=== PATIENT | female | born 1985 | race Caucasian/White ===

== ENCOUNTER → 2017-07-14 | Outpatient (CLI) | payer SELFPAY ==
--- NOTE | 2017-07-14 11:34 | RADIOLOGY REPORT (SQ) ---
EXAM DESCRIPTION: U/S [id number] TRNABD 1GES W/ODOP COMPLETED DATE/TIME: 07/14/2017 10:17 am REASON FOR STUDY: Z34.81 ENCOUNTER FOR SUPRVSN OF NORMAL , FIRST TRIMESTER Z34.81 ENCOUNTE R FOR SUPRVSN OF NORMAL , FIRST TRIM COMPARISON: None. TECHNIQUE: Transabdominal static and realtime grayscale images acquired of the pelvis. Additional se lected spectral and color Doppler images recorded. All images stored on PACs. bHCG: Not applicable. LIMITATIONS: None. FINDINGS: FETUS: Living intrauterine . EGA: 9 week 2 day. BRYON: 02/14/2018. FHR: 160 beats per minute. SUBCHORIONIC BLEED: No. SIZE OF BLEED: Not applicable. UTERUS: No masses. No anomalies. CERVICAL LENGTH: 2.7 cm. Closed. RIGHT ADNEXA: Normal ovary with normal vascular flow. No adnexal free fluid. No adnexal masses. LEFT ADNEXA: Ovary not identified. No adnexal free fluid. No adnexal masses. FREE FLUID: None. OTHER: No other significant finding. IMPRESSION: LIVING INTRAUTERINE . EGA 9 WEEK 2 DAY. Trimester of : First - 0 to 13 weeks. TECHNICAL DOCUMENTATION: JOB ID: [id number] [email or web address]- All Rights Reserved
== END ==
LOC: RAD 09:40
PROVIDERS: ATTEND Nurse Practitioner Women's Health
DX: Z34.81 Encounter for supervision of other normal pregnancy, first trimester (principal)
CPT/HCPCS: 76801

== ENCOUNTER 2018-02-21 21:22 | Inpatient (IN) | payer MEDICAID ==
[2018-02-21] MEDS ORDERED: RINGERS SOLUTION,LACTATED 300 ML IV ONE (21:39)
[2018-02-21] MEDS ORDERED: DINOPROSTONE 10 MG VAGINAL INSERT.SR PV PRN (21:39)
[2018-02-21] MEDS ORDERED: MAG HYDROX/AL HYDROX/SIMETH SUSP 30 ML UDCUP PO PRN (21:40)
[2018-02-21] MEDS ORDERED: ACETAMINOPHEN 325 MG TABLET PO PRN (21:40)
[2018-02-21 21:49] LABS: APPEARANCE,URINE SLIGHTLY-CLOUDY; BILIRUBIN,URINE NEGATIVE (NEGATIVE); COLOR,URINE STRAW; GLUCOSE, URINE NEGATIVE (NEGATIVE); KETONES,URINE NEGATIVE (NEGATIVE); LEUKOCYTE ESTERASE,URINE TRACE (NEGATIVE); NITRITE,URINE NEGATIVE (NEGATIVE); PROTEIN,URINE NEGATIVE (NEGATIVE); URINE SPECIFIC GRAVITY 1.002; UROBILINOGEN,URINE NEGATIVE mg/dL (<2.0)
[2018-02-21] MEDS: ZOLPIDEM TARTRATE 5 MG TABLET PO SCH (22:00)
[2018-02-21 22:05] LABS: URINE AMPHETAMINES SCREEN NEGATIVE; URINE BARBITURATES SCREEN NEGATIVE; URINE BENZODIAZEPINES SCREEN NEGATIVE; URINE COCAINE SCREEN NEGATIVE; URINE MARIJUANA (THC) SCREEN NEGATIVE; URINE METHADONE SCREEN NEGATIVE; URINE PHENCYCLIDINE SCREEN NEGATIVE
[2018-02-21 22:07] LABS: ABSOLUTE EOSINOPHILS # (AUTO) 0.1 10^3/uL (0.0-0.6); ABSOLUTE LYMPHOCYTES (AUTO) 3.1 10^3/uL (0.5-4.7); ABSOLUTE MONOCYTES (AUTO) 0.8 10^3/uL (0.1-1.4); ABSOLUTE NEUT (AUTO) 7.4 10^3/uL (1.7-8.2); BASOPHILS % (AUTO) 0.3 % (0-2); EOSINOPHILS % (AUTO) 0.6 % (0-6); HEMATOCRIT 33.3 % (36.0-47.0); HEMOGLOBIN 11.2 g/dL (12.0-15.5); LYMPHOCYTES % (AUTO) 27.3 % (13-45); MEAN CORPUSCULAR HEMOGLOBIN 24.4 pg (27.0-33.4); MEAN CORPUSCULAR HGB CONC 33.6 g/dL (32.0-36.0); MEAN CORPUSCULAR VOLUME 72 fl (80-97); MONOCYTES % (AUTO) 7.1 % (3-13); PLATELET COUNT 271 10^3/uL (150-450); SEGMENTED NEUTROPHILS % (AUTO) 64.7 % (42-78); TOTAL CELLS COUNTED % (AUTO) 100 %; WHITE BLOOD COUNT 11.4 10^3/uL (4.0-10.5)
[2018-02-21] MEDS ORDERED: DINOPROSTONE 10 MG VAGINAL INSERT.SR ONE (22:30)
[2018-02-21] MEDS: RINGERS SOLUTION,LACTATED 1,000 ML IV PRN (22:31)
--- NOTE | 2018-02-22 00:26 | Admission Physical ---
Datetime Report Generated by CPN: 02/22/2018 00:26 CURRENT ADMISSION Chief Complaint: Scheduled Induction of Labor Indication for Induction: Post Dates Admit Impression : Term, Intrauterine Admit Plan: Admit to Unit; Initiate Labor Induction Protocol ALLERGIES Medication Allergies: No Medication Allergies: No Known Allergies (02/21/2018) Latex: No Latex Allergies Food Allergies: N/A Environmental Allergies: N/A OBSTETRICAL HISTORY EDC: 02/14/2018 00:00 : 2 Para: 0 Term: 0 : 0 SAB: 0 IAB: 1 Ectopic: 0 Livin Cesareans: 0 VBACs: 0 Multiple Births: 0 Gestational Diabetes: No Rh Sensitization: No Incompetent Cervix: No OMAR: No Infertility: No ART Treatment: No Uterine Anomaly: No IUGR: No Hx Previous C/S: No Macrosomia: No Hx Loss/Stillborn: No PIH: No Hx : No Placenta Previa/Abruption: No Depression/PP Depression: No PTL/PROM: No Post Hemorrhage: No Current Procedures: Ultrasound; NST Obstetrical History Comments: G1-2005 EAB G2-Current SEE RECORDS Alcohol: No Marijuana : No Cocaine: No Other Illicit Drugs: No Cigarettes: Former Smoker. 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 Heart Disease: No Hosp/Surgery: No Autoimmune Disorder: No Anesthetic Complications: No Kidney Disease: No Abnormal Pap Smear: Yes Neuro/Epilepsy: No Psychiatric Disorders: No Other Medical Diseases: No Hepatitis/Liver Disease: No Significant Family History: No Varicosities/Phlebitis: No Trauma/Violence : No Thyroid Dysfunction: No Medical History Comments: Anemia, soft teeth; ASCUS pap with +HPV INFECTIOUS HISTORY Gonorrhea: No Genital Herpes: No Chlamydia: No Tuberculosis: No Syphilis: No Hepatitis: No HIV/AIDS Exposure: No Rash or Viral Illness: No HPV: Yes Infectious History Comments: ASCUS pap with +HPV PHYSICAL EXAM General: Normal HEENT: Normal Neurologic: Normal Thyroid: Normal Heart: Normal Lungs: Normal Breast: Deferred Back: Normal Abdomen: Normal Genitourinary Exam: Normal Extremities: Normal DTRs: Normal Pelvic Type: Adequate Vital Signs: Reviewed VAGINAL EXAM Dilatation: 1 Effacement: 0 Station: -3 MEMBRANES Pooling: Negative Membranes: Intact FETUS A EGA: 41.1 Monitoring: External US FHR- Baseline: 130 Variability: Moderate 6-25bpm Accelerations: 15X15 Decelerations: None FHR Category: Category I Presentation: Vertex Admit Comment: EFW 9.5 lbs PLANS FOR LABOR AND DELIVERY Labor and Delivery: None Pain Management: Epidural Feeding Preference: Formula Benefit of Breast Feed Discussed: Yes Circumcision: N/A INFORMED CONSENT Signature: with User ID: [email or web address]
[2018-02-22] MEDS ORDERED: OXYTOCIN/NORMAL SALINE 20 UNIT/1,000 ML RTUINJ ONE ×2 (12:49→22:48)
--- NOTE | 2018-02-22 16:22 | L&D Progress Notes ---
PROGRESS NOTES Datetime Report Generated by CPN: 02/22/2018 16:21 PROGRESS NOTE Impression: Normal Progression of Labor Procedures: Sterile Vag Exam Plan: Continue Present Management; Induction Informed Consent Obtained: Vaginal Delivery; Induction of Labor; Risks, Benefits and Alternatives Discussed Vital Signs : Reviewed Comment: Pt here for IOL. Cooks catheter placed after cervidil removed today. Plan for pitocin and cooks catheter. Anticipate . reassuring FWB VAGINAL EXAM Dilatation: 1 Effacement: 0 Station: -3 MEMBRANES Pooling: Negative Membranes: Intact FETUS A FHR - Baseline: 155 Monitoring: External US : 41.0 Presentation: Vertex SIGNATURE SIGNATURE: [id number];[id number] SIGNATURE: [id number] Signature: with User ID: [email or web address]
[2018-02-22] MEDS ORDERED: LIDOCAINE 1% INJ-PF (10 MG/ML) 30 ML SDV ONE (22:48)
[2018-02-22] MEDS ORDERED: MISOPROSTOL 0.2 MG TABLET ONE (22:48)
[2018-02-22] MEDS ORDERED: BUPIVACAINE HCL 0.25 % INJ/PF (2.5 MG/1 ML) 30 ML VIAL ONE (22:49)
[2018-02-22] MEDS ORDERED: FENTANYL/BUPIVACAINE/NS/PF 300 MCG/150 ML RTUINJ EPI ONE (22:49)
[2018-02-22] MEDS ORDERED: EPHEDRINE SULFATE INJ 50 MG/1 ML AMPULE ONE (22:49)
--- NOTE | 2018-02-23 06:33 | L&D Progress Notes ---
PROGRESS NOTES Datetime Report Generated by CPN: 02/23/2018 06:33 PROGRESS NOTE Impression: Normal Progression of Labor Procedures: Sterile Vag Exam Plan: Continue Present Management; Induction Informed Consent Obtained: Vaginal Delivery; Risks, Benefits and Alternatives Discussed Comment: 32yo at 41+2ega presented for IOL with cervidil on 02/21 and then on 02/22 at approx noon cervdil out and patient had eaten and showered. Cooks catheter placed. Cooks catheter out at 1830 and AROM at 1900. cvx 4cm at 1900. Pitocin continued to increase throughout the night and pt obtained and epidural. Cvx at 0400 5.5cm and ctx picking up but low. IUPC placed at 0600 due to concern for inadequate MVUs. Reviewed with patient and family to help make MVUs adequate. If adequate MVUs and no cervical change or change in station then would need a section. FETUS A Monitoring: External US FETUS C SIGNATURE: [id number];[id number] Signature: with User ID: [email or web address]
[2018-02-23] MEDS ORDERED: OXYTOCIN/NORMAL SALINE 20 UNIT/1,000 ML RTUINJ IV PRN ×2 (11:12→15:57)
--- NOTE | 2018-02-23 12:16 | L&D Progress Notes ---
PROGRESS NOTES Datetime Report Generated by CPN: 02/23/2018 12:15 PROGRESS NOTE Impression: Reassuring Heart Rate Plan: Continue Present Management; Induction Informed Consent Obtained: Section Delivery; Induction of Labor; Risks, Benefits and Alternatives Discussed Vital Signs : Reviewed Comment: update no cervical change, yet reassuring presentation- OA risks of primary section reviewed with pt and family questions answered/ MVUs adequate/pitocin at 30 mu/min/ epidural in place FHTs 130s average variability pt consents to several more hours of labor pt tearful and considering requesting primary section guarded vaginal delivery poc reviewed with FETUS A Monitoring: External US : 41.2 FETUS C SIGNATURE: [id number];[id number] Assignment: Trung Goodwin MD Signature: with User ID: [email or web address] : with User ID: [email or web address]
[2018-02-23] MEDS ORDERED: CEFAZOLIN 2 GM/D5W RTU 2 GM/50 ML RTUPB IV ONE (14:24)
[2018-02-23] MEDS ORDERED: CITRIC ACID/SODIUM CITRATE ORAL SOLN 15 ML UDCUP ONE (14:24)
[2018-02-23] MEDS ORDERED: LIDOCAINE 2% INJ-PF (20 MG/ML) 10 ML AMPUL ONE (14:49)
[2018-02-23] MEDS ORDERED: EPHEDRINE SULFATE INJ 50 MG/1 ML AMPULE ONE ×2 (14:53→14:57)
[2018-02-23] MEDS ORDERED: OXYTOCIN 10 UNIT/ML VIAL ONE (14:57)
[2018-02-23] MEDS ORDERED: FENTANYL CITRATE INJ/PF 100 MCG/2 ML AMPUL ONE (14:57)
[2018-02-23] MEDS ORDERED: MIDAZOLAM 2 MG/2 ML INJ ONE (14:58)
[2018-02-23] MEDS ORDERED: ACETAMINOPHEN 1,000 MG/100 ML RTUPB IV ONE (14:58)
[2018-02-23] MEDS ORDERED: FENTANYL CITRATE INJ/PF 100 MCG/2 ML AMPUL IV PRN ×3 (15:03)
[2018-02-23] MEDS ORDERED: MORPHINE SULFATE 10 MG/ML INJ IV PRN (15:03)
[2018-02-23] MEDS ORDERED: DIPHENHYDRAMINE HCL 50 MG/ML VIAL IV PRN (15:03)
[2018-02-23] MEDS ORDERED: PROMETHAZINE HCL INJ 25 MG/1 ML VIAL IV PRN ×3 (15:03→15:57)
[2018-02-23] MEDS ORDERED: MEPERIDINE HCL/PF INJ 25 MG/1 ML DISP.SYRIN IV PRN (15:03)
[2018-02-23] MEDS ORDERED: OXYCODONE-ACETAMINOPHEN 5-325 MG TABLET PO PRN ×3 (15:03→15:57)
[2018-02-23] MEDS ORDERED: METHYLERGONOVINE MALEATE INJ/PF 0.2 MG/1 ML AMPULE ONE (15:28)
[2018-02-23] MEDS ORDERED: MORPHINE SULFATE 10 MG/ML INJ ONE (15:38)
[2018-02-23] MEDS ORDERED: DIPH/PERTUSS(ACELL)/TETANUS VAC/PF 0.5 ML SYR (>=10YO) IM PRN (15:57)
[2018-02-23] MEDS ORDERED: MEASLES,MUMPS&RUBELLA VACC/PF 0.5 ML VIAL SUBCUT PRN (15:57)
[2018-02-23] MEDS ORDERED: SIMETHICONE 80 MG TAB.CHEW PO PRN (15:57)
[2018-02-23] MEDS ORDERED: ACETAMINOPHEN 325 MG TABLET PO PRN (15:57)
--- NOTE | 2018-02-23 15:57 | PDOC DELIVERY SUMMARY ---
Delivery Summary - Maternal Ruptured Membranes: AROM Fluids: Clear - Delivery Labor: Induction Presentation: Vertex Uterine Contraction Monitoring: External Support Person Present: Yes Placenta: Within Normal Limits Nuchal Cord: No - Medications Type of Anesthesia:: Epidural
[2018-02-23] MEDS ORDERED: KETOROLAC TROMETHAMINE INJ/PF 30 MG/1 ML SDV ONE (16:29)
[2018-02-23] MEDS: KETOROLAC TROMETHAMINE INJ/PF 30 MG/1 ML SDV IV SCH (16:34)
--- NOTE | 2018-02-23 17:23 | Warning Signs in Babies ---
VOD Warning Signs Datetime Report Generated by [facility]: 02/23/2018 17:23 VOD#[id number] -Warning Signs in Babies: Needs to be viewed. (02/21/2018 21:24:Cassandra Valentine RN)
--- NOTE | 2018-02-23 18:10 | OPERATIVE REPORT E ---
Operative Report NAME: OLIVIA LOGAN : 1985 AGE: 32Y DATE OF SURGERY: 02/23/2018 ROOM: LR200 PREOPERATIVE DIAGNOSIS: INTRAUTERINE AT TERM WITH FAILURE TO DESCEND. POSTOPERATIVE DIAGNOSIS: INTRAUTERINE AT TERM WITH FAILURE TO DESCEND. OPERATION: Primary low transverse . Delivery of viable female, 9-9 Apgars, 8 pounds 3 ounces. ESTIMATED BLOOD LOSS: Less than 1000 mL. TISSUE REMOVED: Placenta. SURGEON: Toan WILLIS M.D. ANESTHESIA: Epidural. PROCEDURE: The patient was placed in a supine position, rolled to her right side. Prepped and draped in sterile fashion. Pfannenstiel incision was made. Incision extended through subcutaneous tissue and fascia. The fascia was sharply divided. Rectus muscles bluntly and sharply divided. Parietal peritoneum was entered sharply. The uterus was nicked in the midline and extended bilaterally. The was then delivered through the uterine abdominal incision. Nose and mouth suctioned with bulb syringe. Cord was clamped. was passed from the table. The placenta was manually extracted. Uterus closed in 2 layers using 0 Vicryl pursestring running stitch, and the second layer of Lembert stitch imbricating the first layer. Several areas of bleeding were noted and controlled with [id number] sutures of 0 Vicryl. Hemostasis was noted. The fascia was then closed with 0 Vicryl. The skin was closed with subcu absorbable santy. Her urine remained clear throughout the procedure and she was taken to the recovery room in good condition, and the infant to the nursery in good condition. DICTATING PHYSICIAN: Toan WILLIS M.D. [id number] PHY#: [id number] ID: [id number] JOB#: [id number] ACCT: [id number] cc:Toan WILLIS M.D. >
[2018-02-23] MEDS: ZOLPIDEM TARTRATE 5 MG TABLET PO SCH ×2 (19:29→23:57)
[2018-02-23] MEDS: DOCUSATE SODIUM 100 MG CAPSULE PO SCH (19:29)
[2018-02-23] MEDS: OXYCODONE-ACETAMINOPHEN 5-325 MG TABLET PO PRN (20:34)
[2018-02-24] MEDS: KETOROLAC TROMETHAMINE INJ/PF 30 MG/1 ML SDV IV SCH ×2 (00:13→08:13)
[2018-02-24] MEDS: RINGERS SOLUTION,LACTATED 1,000 ML IV PRN ×2 (00:15→03:30)
[2018-02-24] MEDS: OXYCODONE-ACETAMINOPHEN 5-325 MG TABLET PO PRN (06:30)
[2018-02-24 06:49] LABS: HEMATOCRIT 25.4 % (36.0-47.0); MEAN CORPUSCULAR HEMOGLOBIN 24.2 pg (27.0-33.4); MEAN CORPUSCULAR HGB CONC 33.1 g/dL (32.0-36.0); MEAN CORPUSCULAR VOLUME 73 fl (80-97); PLATELET COUNT 183 10^3/uL (150-450); RED BLOOD COUNT 3.46 10^6/uL (3.72-5.28); RED CELL DISTRIBUTION WIDTH 16.8 % (11.5-14.0); WHITE BLOOD COUNT 13.9 10^3/uL (4.0-10.5)
[2018-02-24 06:52] LABS: HEMOGLOBIN 8.4 g/dL (12.0-15.5)
--- NOTE | 2018-02-24 09:17 | PDOC PROGRESS REPORT ---
Subjective-OB Progress Note for:: 02/24/18 Physical Exam (OB) Vital Signs: Temp Pulse Resp BP Pulse Ox 97.9 F 93 17 105/56 L 97 02/24/18 04:00 02/24/18 04:00 02/24/18 04:00 02/24/18 04:00 02/24/18 04:00 Intake & Output 02/23/18 02/24/18 02/25/18 06:59 06:59 06:59 Output Total 750 Balance -750 Weight 108.9 kg - Dressing Removed: No - Medipore dressing CD&I Incision: Dressing - Lochia Lochia Amount: Small 10-25 ml Lochia Color: Rubra/Red - Abdomen Description: Tender, Soft Hernia Present: No Bowel Sounds: Normoactive Flatus Presence: Present Stool: No Fundal Description: Firm, Midline Fundal Height: u/u - u/2 Objective-Diagnostic Laboratory: 02/24/18 06:16 02/24/18 06:16 WBC 13.9 H RBC 3.46 L Hgb 8.4 L D Hct 25.4 L MCV 73 L MCH 24.2 L MCHC 33.1 RDW 16.8 H Plt Count 183
[2018-02-24] MEDS: PRENATAL VITAMIN W DHA CAPSULE PO SCH (11:35)
[2018-02-24] MEDS: DOCUSATE SODIUM 100 MG CAPSULE PO SCH ×2 (11:36→17:24)
[2018-02-24] MEDS: IBUPROFEN 800 MG TABLET PO SCH ×2 (14:59→21:05)
[2018-02-24] MEDS: ZOLPIDEM TARTRATE 5 MG TABLET PO SCH (23:12)
[2018-02-25] MEDS: IBUPROFEN 800 MG TABLET PO SCH ×2 (04:00→08:49)
[2018-02-25] MEDS: PRENATAL VITAMIN W DHA CAPSULE PO SCH (08:49)
[2018-02-25] MEDS: DOCUSATE SODIUM 100 MG CAPSULE PO SCH (09:44)
--- NOTE | 2018-02-25 10:19 | PDOC PROGRESS REPORT ---
Subjective-OB Progress Note for:: 02/25/18 Subjective: Ready to go home. Physical Exam (OB) Vital Signs: Temp Pulse Resp BP Pulse Ox 97.5 F 88 16 128/71 H 97 02/25/18 08:22 02/25/18 08:22 02/25/18 08:22 02/25/18 08:22 02/25/18 08:22 Intake & Output 02/24/18 02/25/18 02/26/18 06:59 06:59 06:59 Intake Total 1110 Output Total 750 400 Balance -750 710 Weight 108.9 kg - PIH/Pre-Eclampsia DTR's: 2 + Clonus: Negative Headache: Absent Epigastric Pain: No Visual Changes: No - Dressing Removed: Yes Incision: Well Approximated Closure Type: Surgical Glue - Lochia Lochia Amount: Scant < 10 ml Lochia Color: Rubra/Red - Abdomen Description: Soft Hernia Present: No Bowel Sounds: Normoactive Flatus Presence: Present Stool: Yes Fundal Description: Firm, Midline Fundal Height: u/u - u/2 Objective-Diagnostic Laboratory: 02/24/18 06:16
--- NOTE | 2018-02-25 10:27 | PDOC DISCHARGE SUMMARY ---
Final Diagnosis Discharge Date: 02/25/18 - Final Diagnosis (1) Delivery by elective caesarean section Is this a current diagnosis for this admission?: Yes (2) Failure to progress in labor, delivered, current hospitalization Is this a current diagnosis for this admission?: Yes (3) Post-term Is this a current diagnosis for this admission?: Yes (4) Is this a current diagnosis for this admission?: Yes Discharge Data - Discharge Medication Prescriptions: Oxycodone HCl/Acetaminophen [Percocet 5-325 mg Tablet] 1 tab PO Q4HP PRN #20 tablet PRN Reason: Ibuprofen [Motrin 800 mg Tablet] 800 mg PO Q6A #30 tablet Home Medications: Ferrous Sulfate [Iron] 325 mg PO DAILY 02/21/18 Vit/Iron Fum/Folic AC [ Tablet] 1 each PO DAILY 02/21/18 Ibuprofen [Motrin 800 mg Tablet] 800 mg PO Q6A #30 tablet 02/25/18 Oxycodone HCl/Acetaminophen [Percocet 5-325 mg Tablet] 1 tab PO Q4HP PRN #20 tablet 02/25/18 Gestational Age: 41.1 wks Reason(s) for Admission: Induction of Labor Procedures: Ultrasound Intrapartum Procedure(s): : Low Cervical, Transverse - Data Baby 1 Female at 1 minute: 9 at 5 minutes: 9 Weight: 3.714 kg Home with Mother: Yes Complications: No - Diagnosis Test Laboratory: Temp Pulse Resp BP Pulse Ox 97.5 F 88 16 128/71 H 97 02/25/18 08:22 02/25/18 08:22 02/25/18 08:22 02/25/18 08:22 02/25/18 08:22 02/21/18 02/21/18 02/24/18 21:32 21:49 06:16 RBC 4.60 3.46 L Hgb 11.2 L 8.4 L D Hct 33.3 L 25.4 L Urine Opiates Screen NEGATIVE - Discharge information/Instructions Discharge Activity: Activity As Tolerated, Balance Activity w/Rest, No Lifting Over 10 Pounds, No Lifting/Push/Pulling, Pelvic Rest, Slowly Increase Activity, No tub bath Discharge Diet: Regular Disposition: HOME, SELF-CARE Follow up with: [facility] in: 1, Weeks
[2018-02-25 11:21] VITALS: BP 125/68
== END 2018-02-25 14:35 | disposition home or self-care (01) | DRG 766 ==
LOC: LR 21:22 → 2N 02-23 18:00
PROVIDERS: ADMIT Obstetrics & Gynecology; ATTEND Obstetrics & Gynecology
PROC: 10D00Z1 Extraction of Products of Conception, Low, Open Approach (ICD-10-PCS; principal; 2018-02-21)
PROC: 4A1HXCZ Monitoring of Products of Conception, Cardiac Rate, External Approach (ICD-10-PCS; 2018-02-21)
DX: O62.1 Secondary uterine inertia (principal); O48.0 Post-term pregnancy; O99.02 Anemia complicating childbirth; D64.9 Anemia, unspecified; Z87.891 Personal history of nicotine dependence; Z3A.41 41 weeks gestation of pregnancy; Z37.0 Single live birth
CPT/HCPCS: 1961; 36415; 59025; 80307; 81005; 85025; 85027; 86592; 86850; 86900; 86901; 94760; 94799; J0131; J0690; J1885; J2210; J2250; J2270; J2590; J3010; J3490; J7120